=== PATIENT | male | born 1985 | race Caucasian/White ===

== ENCOUNTER 2024-08-15 20:28 | Emergency (ER) | payer SELFPAY ==
[2024-08-15 20:33] VITALS: PULSE 109; TEMP 36.6; O2SAT 96; BMI 28.2
--- NOTE | 2024-08-15 21:06 | ED.GENADUL1 ---
HPI HPI - General Adult General Chief complaint: Shortness of Breath/Dyspnea Stated complaint: DIFF BREATHING/CP Time Seen by Provider: 08/15/24 21:03 Source: patient Mode of arrival: walk-in Limitations: no limitations History of Present Illness HPI narrative: patient states he swallowed a coin about 5-6 months ago. Now for the past 3 days feels like the coin is stuck in his chest. Has pain when taking a breath or feels like he can't take a full breath. No nausea or vomiting. No fever Related Data Home Medications ?Medication ?Instructions ?Recorded ?Confirmed No Known Home Medications 08/15/24 08/15/24 Allergies Allergy/AdvReac Type Severity Reaction Status Date / Time No Known Drug Allergies Allergy Verified 08/15/24 20:33 Opioid HPI Opioid Management Most Recent Opioid Data: No Data to Display Review of Systems ROS Status of ROS 10 or more systems reviewed and unremarkable except as noted in history and below Exam Constitutional Vital Signs, click to edit/add: Last Vital Signs Temp 97.8 F 08/15/24 20:33 Pulse 109 H 08/15/24 20:33 Resp 18 08/15/24 20:33 Pulse Ox 99 08/15/24 23:38 O2 Del Method Room Air 08/15/24 23:38 Common normals: no apparent distress, average body habitus, oriented x3, no limitations, healthy appearing, alert and well nourished [facility] Common normals: normocephalic and head/scalp atraumatic Eye Common normals: EOMs intact bilaterally and conjunctivae normal Respiratory Common normals: normal respiratory effort, no retractions, no use of accessory muscles and clear to auscultation bilaterally Cardio Common normals: regular rate, regular rhythm, S1 normal heart sound and S2 normal heart sound GI Common normals: Normal to inspection, nondistended, normoactive bowel sounds present, soft to palpation and non-tender Extremity Common normals: normal to inspection and full ROM Neuro Common normals: oriented x3, CN's II-XII intact bilaterally, moves all extremities and no focal motor deficits Psych Appearance: grossly normal Course Vital Signs Vital signs: Vital Signs Temperature 97.8 F 08/15/24 20:33 Pulse Rate 109 H 08/15/24 20:33 Respiratory Rate 18 08/15/24 20:33 Pulse Oximetry 96 08/15/24 20:33 Oxygen Delivery Method Room Air 08/15/24 20:33 Temperature 97.8 F 08/15/24 20:33 Pulse Rate 109 H 08/15/24 20:33 Respiratory Rate 18 08/15/24 20:33 Pulse Oximetry 99 08/15/24 23:38 Oxygen Delivery Method Room Air 08/15/24 23:38 Medical Decision Making MDM Narrative Medical decision making narrative: patient presents with atypical complaint. Believes a coin he swallowed 5-6 months ago may be stuck in his chest causing pain. Exam is neg. Patient refused any lab testing but agreeable to chest xray that returned normal. Patient in no distress during his time in the department and discharged home with working diagnosis of atypical chest pain Discharge Plan Discharge Chief Complaint: Shortness of Breath/Dyspnea Clinical Impression: Atypical chest pain Patient Disposition: Home, Self-Care Prescriptions / Home Meds: No Action No Known Home Medications Print Language: Yoruba Instructions: Noncardiac Chest Pain (ED) Additional Instructions: follow up with your doctor for recheck Referrals: Physician,Non-Staff, MD [Primary Care Provider] - 1 week
--- NOTE | 2024-08-15 21:08 | ECG_ITS ---
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 Measurements Intervals [place] Rate: 97 P: 58 MI: 148 QRS: 99 QRSD: 90 T: 10 QT: 318 QTc: 373 Interpretive Statements 1100 Sinus rhythm 3434 Septal myocardial infarction, age undetermined 7102 Moderate right axis deviation 9150 abnormal ECG No previous ECG available for comparison Electronically Signed On 08-16-2024 19:28:55 EDT by CHRIS SHELDON M.D.
[2024-08-15] MEDS: lidocaine HCL 15 ML, MAG HYDROX/ALUMINUM HYD/SIMETH 30 ML, HYOSCYAMINE SULFATE 0.25 MG PO (21:31)
--- NOTE | 2024-08-15 22:00 | PC.NURSE ---
patient states he feels SOB and midsternal chest pain down to top of abdomen. he believes this pain is caused from a coin he swallowed 6 months ago. patient states that he also swallowed a blue danitza 1 year ago. states that he swallows these things because they are rare and he wants to keep them. patient does not want to speak to counselor states he just needs to stop swallowing things. respirations even and normal.
[2024-08-15 23:38] VITALS: O2SAT 99
[2024-08-16 00:21] VITALS: BP 142/68; PULSE 78; O2SAT 99
== END 2024-08-16 00:24 | disposition home or self-care (01) ==
PROVIDERS: Emergency Provider Internal Medicine
DX: R07.89 Other chest pain (principal)
CPT/HCPCS: 71045; 80053; 83690; 84484; 85378; 93005; 99285